=== PATIENT | female | born 1995 | race Caucasian/White ===

== ENCOUNTER 2017-12-09 08:55 | Emergency (ER) | payer MEDICARE ==
[~2017-12-09] VITALS: Ht 167.6 cm; Wt 74.8 kg
[2017-12-09 09:06] VITALS: BP_SYST 131
[2017-12-09] MEDS ORDERED: IBUPROFEN 600 MG TABLET PO ONE (09:30)
[2017-12-09 10:27] VITALS: BP_SYST 125
== END 2017-12-09 10:27 | disposition home or self-care (01) ==
LOC: SED 08:55
DX: S92.512A Displaced fracture of proximal phalanx of left lesser toe(s), initial encounter for closed fracture (principal); W22.8XXA Striking against or struck by other objects, initial encounter; Y93.89 Activity, other specified; Y92.89 Other specified places as the place of occurrence of the external cause; Y99.8 Other external cause status
CPT/HCPCS: 99284

== ENCOUNTER 2018-10-22 02:23 | Emergency (ER) | payer BC, MEDICARE ==
[~2018-10-22] VITALS: Ht 170.2 cm; Wt 75.7 kg
[2018-10-22 02:38] VITALS: BP_SYST 140
[2018-10-22] MEDS ORDERED: DIPH-TET-PERTUS Vaccine 0.5 ML VIAL (ADACEL) I.M. ONE (03:30)
[2018-10-22] MEDS ORDERED: BACITRACIN 1 GM OINT TP ONE (03:30)
[2018-10-22] MEDS ORDERED: IBUPROFEN 800 MG TABLET PO ONE (03:30)
[2018-10-22 04:02] VITALS: BP_SYST 140
== END 2018-10-22 04:02 | disposition home or self-care (01) ==
LOC: SED 02:23
DX: S60.111A Contusion of right thumb with damage to nail, initial encounter (principal); W23.0XXA Caught, crushed, jammed, or pinched between moving objects, initial encounter; Y93.89 Activity, other specified; Y92.89 Other specified places as the place of occurrence of the external cause; Y99.8 Other external cause status
CPT/HCPCS: 73140-TC; 90715; 99283

== ENCOUNTER 2023-04-20 11:50 | Emergency (ER) | payer BC, MEDICAID ==
[~2023-04-20] VITALS: Ht 170.2 cm; Wt 71.7 kg
[2023-04-20 12:08] VITALS: BP_SYST 108; PULSE 94; RESP 18; TEMP 97.2; O2SAT 98
[2023-04-20] MEDS ORDERED: IBUP-1969 PO (13:10)
[2023-04-20 13:18] VITALS: BP_SYST 108; PULSE 94; RESP 18; TEMP 97.2; O2SAT 98
== END 2023-04-20 13:19 | disposition home or self-care (01) ==
LOC: SED 11:50
DX: S93.601A Unspecified sprain of right foot, initial encounter (principal); Z79.899 Other long term (current) drug therapy; W22.8XXA Striking against or struck by other objects, initial encounter; Y93.89 Activity, other specified; Y92.89 Other specified places as the place of occurrence of the external cause; Y99.8 Other external cause status
CPT/HCPCS: 99283

== ENCOUNTER 2023-07-02 14:40 | Emergency (ER) | payer MEDICAID ==
[~2023-07-02] VITALS: Ht 167.6 cm; Wt 71.2 kg
[~2023-07-02 14:40] MED LIST: IBUP-1969 PO
[2023-07-02 15:02] VITALS: BP_SYST 159; PULSE 82; RESP 18; TEMP 98.2; O2SAT 98
[2023-07-02 16:01] LABS: BARBITURATE, URINE NEGATIVE (NEG <=200); BENZODIAZEPINE, URINE NEGATIVE (NEG <=150); CANNABINOID, URINE NEGATIVE (NEG <=50); COCAINE, URINE NEGATIVE (NEG <=150); METHAMPHETAMINES SCREEN,URINE NEGATIVE (NEG <=500); OPIATE, URINE NEGATIVE (NEG <=100); PHENCYCLIDINE SCREEN,URINE NEGATIVE (NEG <=25); UR TRICYCLIC ANTIDEPRESSANTS NEGATIVE (NEG <=300); URINE AMPHETAMINE NEGATIVE (NEG <=500); URINE METHADONE NEGATIVE (NEG <=200); URINE OXYCODONE SCREEN NEGATIVE (NEG <=100)
[2023-07-02 16:57] LABS: CALCIUM 9.6 mg/dL (8.4-11.0); CREATININE 0.87 mg/dL (0.55-1.30); POTASSIUM 4.2 mmol/L (3.5-5.1)
[2023-07-02 17:00] LABS: SERUM HCG (QUALITATIVE) NEGATIVE (NEGATIVE)
[2023-07-02 17:07] LABS: BASOPHILS % (AUTO) 0.4 % (0.0-2.0); EOSINOPHILS # (AUTO) 0.2 K/uL (0.0-0.4); EOSINOPHILS % (AUTO) 1.9 % (0.0-4.0); HEMATOCRIT 40.4 % (36-48); HEMOGLOBIN 13.8 g/dL (12.0-16.0); LYMPHOCYTES % (AUTO) 17.1 % (20.5-51.5); MEAN CORPUSCULAR HEMOGLOBIN 28 pg (27-31); MEAN CORPUSCULAR HGB CONC 34 % (32-36); MEAN CORPUSCULAR VOLUME 83 fL (79.0-98.0); MONOCYTES # (AUTO) 0.6 K/uL (0.0-1.0); MONOCYTES % (AUTO) 4.7 % (1.7-9.3); NEUTROPHILS # (AUTO) 8.9 K/uL (1.8-7.7); NEUTROPHILS % (AUTO) 75.9 % (40.0-70.0); PLATELET COUNT (AUTO) 253 K/uL (130-430); RED BLOOD CELL COUNT(AUTO) 4.88 MIL/uL (4.2-6.2); RED CELL DISTRIBUTION WIDTH 13.3 % (9.0-15.0); WHITE BLOOD COUNT (AUTO) 11.7 K/uL (4.8-10.8)
[2023-07-02 17:09] LABS: ALBUMIN 4.1 g/dL (3.4-4.8); BILIRUBIN,DIRECT 0.1 mg/dL (0.0-0.3); FREE T4 (FREE THYROXINE) 0.9 ng/dL (0.6-1.6); THYROID STIMULATING HORMONE 0.73 uIu/mL (0.34-4.82); TOTAL BILIRUBIN 0.4 mg/dL (0.0-1.0); TOTAL PROTEIN, SERUM 8.1 g/dL (6.4-8.3)
[2023-07-02 17:42] VITALS: BP_SYST 159; PULSE 82; RESP 18; TEMP 98.2; O2SAT 98
== END 2023-07-02 17:38 | disposition home or self-care (01) ==
LOC: SED 14:40
DX: R00.2 Palpitations (principal); Z79.899 Other long term (current) drug therapy
CPT/HCPCS: 36415; 71045; 80048; 80076; 80307; 83880; 84439; 84443; 84484; 84703; 85025; 93005; 99285